=== PATIENT | male | born 1935 | race Caucasian/White ===

== ENCOUNTER 2016-10-25 15:39 | Emergency (ER) | payer OTHER, MEDICAID | END 2016-10-25 15:50 | disposition left against medical advice (07) | LOC: CED 15:39 | DX: R19.00 Intra-abdominal and pelvic swelling, mass and lump, unspecified site (principal) ==

== ENCOUNTER 2016-10-26 07:09 | Emergency (ER) | payer OTHER, MEDICAID ==
[2016-10-26 07:26] VITALS: BP 151/98; PULSE 99; RESP 16; TEMP 97.9; O2SAT 96
--- NOTE | 2016-10-26 07:41 | UCPHY ---
H & P Time Seen by Provider: 10/26/16 07:20 Patient Type: Established HPI/ROS: This patient presents with a chief complaint of an intermittent bulge in his right lower quadrant which has been present for approximately 10 days. The bulging seems to resolve when he is lying down and occurs for frequently when he is upright. When there is protrusion there is some mild pain but no nausea, vomiting or constipation. He denies fever or any constitutional symptoms At the age of 19 the patient had an inguinal hernia repair and the area of the bulge is in the region underlying the surgical scar. Smoking Status: Never smoked Physical Exam: This is a well-developed well-nourished male who is in no acute distress. He is alert and lucid. Examination the abdomen reveals no visible abnormality except for a surgical scar in the lower right quadrant. There is no bulging or hernia palpated at this time. There is no tenderness. External genitalia are normal and there is no inguinal hernia protruding into the scrotum. Constitutional: Initial Vital Signs Temperature (C) 36.6 C 10/26/16 07:23 Heart Rate 99 10/26/16 07:23 Respiratory Rate 16 10/26/16 07:23 Blood Pressure 151/98 H 10/26/16 07:23 O2 Sat (%) 96 10/26/16 07:23 O2 Delivery Mode Room Air Allergies/Adverse Reactions: No Known Allergies Allergy (Verified 10/26/16 07:26) Home Medications: Medication Instructions Recorded Cholesterol Med 10/26/16 Flomax 10/26/16 Lisinopril 10/26/16 Nexium 10/26/16 Omeprazole 10/26/16 Medical Decision Making - Diagnostics Imaging: An ultrasound of the right lower quadrant shows a right inguinal hernia which is not incarcerated and easily reducible. Differential Diagnosis: There is no specific treatment for this patient's problem at this time since there is no strangulation or incarceration. He was referred to surgery for definitive care. Departure - Departure Disposition: Home, Routine, Self-Care Clinical Impression: Right inguinal hernia Condition: Good Instructions: Inguinal Hernia (ED) Additional Instructions: You should follow-up with the surgeon whose name is provided to you in these pages. If the bulge does not go away and causes pain you should be seen immediately. Referrals: Darci Kam MD [Medical Doctor] - As per Instructions - PQRS PQRS Measurement: Not applicable
--- NOTE | 2016-10-26 08:41 | US ---
Ultrasound of the Abdomen Limited History: Right inguinal pain. Palpable abnormality. Comparison: None. Technique: Ultrasound imaging of the right groin was performed without and with Valsalva and in supin e and upright position. Findings: There is a right inguinal hernia with bowel extending into the hernia defect. This appears reducible. IMPRESSION: Reducible right inguinal hernia. Recommendation: Surgical consult. Findings and recommendations discussed with Dr. Govind Mcintosh at 0838 hours today.
== END 2016-10-26 08:53 | disposition home or self-care (01) ==
LOC: CED 07:09
DX: K40.90 Unilateral inguinal hernia, without obstruction or gangrene, not specified as recurrent (principal)
CPT/HCPCS: 76705; G0463; 99214-PO